=== PATIENT | female | born 1950 | race Caucasian/White ===

== ENCOUNTER 2019-08-02 11:14 | Observation (INO) | payer BC ==
--- NOTE | 2019-08-02 11:30 | ED ---
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 Patient denies chest pain and tachycardia prior to this morning's syncopal episode. Patient denies recent vomiting, diarrhea, fever, pain. The patient rates the pain 0/10 in severity. Symptoms aggravated by nothing. Symptoms alleviated by nothing. Patient states that at 02:00 today, she got out of bed, felt dizzy and had a headache, fell to floor, and went to the bathroom where she vomited, then went back to bed. Patient denies loss of consciousness and syncope with this fall. Patient also states that before work, she had another near syncopal episode. Patient states she has no cardiac hx. Last stress test was 10 years ago. Patient states she occasionally drinks alcohol, is a former smoker, and denies drug use. Medications reviewed. Allergies noted. 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 Aggravating Factor(s): Nothing Alleviating Factor(s): Nothing Associated Signs And Symptoms: Negative - chest pain, tachycardia, recent vomiting, diarrhea, fever, pain - Allergies/Home Medications Allergies/Adverse Reactions: Allergies Allergy/AdvReac Type Severity Reaction Status Date / Time No Known Allergies Allergy Verified 08/02/19 11:38 Home Medications: Home Medications NK [No Home Medications Reported] 08/02/19 [History Confirmed 08/02/19] PMH/Surg Hx/FS Hx/Imm Hx Endocrine/Hematology History: Denies: Hx Diabetes Cardiovascular History: Denies: Hx Hypertension - Surgical History Surgery Procedure, Year, and Place: colonoscopy - Family History Known Family History: Positive: Other - Father: colon polyps - Social History Alcohol Use: Occasionally Hx Substance Use: No Substance Use Type: Reports: None Hx Tobacco Use: Yes Smoking Status (MU): Former Smoker Review of Systems Negative: Fever Cardiovascular: Negative - tachycardia Negative: Chest Pain Negative: Vomiting, Diarrhea Positive: Syncope All Other Systems Reviewed And Are Negative: Yes Physical Exam - Summary Physical Exam Summary: Constitutional: Well-developed, Well-nourished, Alert. (-) Distressed Skin: Warm, Dry HENT: Normocephalic; Atraumatic Eyes: Conjunctiva normal Neck: Musculoskeletal ROM normal neck. (-) JVD, (-) Stridor, (-) Tracheal deviation Cardio: Rhythm regular, rate normal, Heart sounds normal; Intact distal pulses; The pedal pulses are 2+ and symmetric. Radial pulses are 2+ and symmetric. (-) Murmur Pulmonary/Chest wall: Effort normal. (-) Respiratory distress, (-) Wheezes, (-) Rales Abd: Soft, (-) tenderness, (-) Distension, (-) Guarding, (-) Rebound Musculoskeletal: (-) Edema Lymph: (-) Cervical adenopathy Neuro: Alert, Oriented x3 Psych: Mood and affect Normal GCS: 15 Triage Information Reviewed: Yes Vital Signs Reviewed: Yes Diagnostics - Laboratory Result Diagrams: 08/02/19 11:44 08/02/19 11:44 Lab Statement: Any lab studies that have been ordered have been reviewed, and results considered in the medical decision making process. - Radiology Chest x-ray Radiology Interpretation Completed By: Radiologist Summary of Radiographic Findings: NO ACTIVE CARDIOPULMONARY DISEASE. ED physician has reviewed this report. - CT Brain CT Interpretation Completed By: Radiologist Summary of CT Findings: 1. NO EVIDENCE FOR ACUTE INTRACRANIAL ABNORMALITY. 2. ATROPHY AND FINDINGS SUGGESTIVE OF MILD TO MODERATE CHRONIC SMALL VESSEL ISCHEMIC CHANGES. ED physician has reviewed this report. - EKG 1126 Cardiac Rate: NL - 78 BPM EKG Rhythm: Sinus Rhythm Summary of EKG Findings: Normal sinus rhythm, normal intervals - Additional Comments Diagnostic Additional Comments: Chest/Thorax CTA, per radiologist: NO PULMONARY ARTERIAL FILLING DEFECT TO SUGGEST PULMONARY EMBOLISM. ED physician has reviewed this report. Course/Dx Assessment/Plan: Patient is here with 3 episodes of syncope in the past 12 hours. Patient's first episode was orthostatic in nature but a second tube occurred while she was standing for prolonged period of time. Patient preceding or proceeding symptoms. Patient had a negative CT brain. Patient had negative blood work outside of a elevated d-dimer.. Patient had negative CTA for PE. Patient had negative orthostatic vital signs. She is admitted to medicine for further workup - Diagnoses Provider Diagnoses: Syncope - Physician Notifications Discussed Care of Patient With: Mirna Connolly Time Discussed With Above Provider: 13:49 Instructed by Provider To: Other - Dr. Connolly, hospitalist, agrees to admit patient Discharge ED - Sign-Out/Discharge Documenting (check all that apply): Patient Departure - Admit Patient Received Moderate/Deep Sedation with Procedure: No - Discharge Plan Condition: Stable Disposition: ADMITTED TO [facility] Referrals: Haylee Mahoney MD [Primary Care Provider] - - Billing Disposition and Condition Condition: STABLE Disposition: Admitted to [facility] - Attestation Statements Document Initiated by Soniaibe: Yes Documenting Scribe: Paloma Rivero Provider For Whom Matheus is Documenting (Include Credential): Adam Chiang MD Scribe Attestation: Paloma Donnelly, scribed for Adam Chiang MD on 08/02/19 at 1608. Scribe Documentation Reviewed: Yes Provider Attestation: The documentation as recorded by the scribe, Paloma Rivero accurately reflects the service I personally performed and the decisions made by me, Adam Chiang MD Status of Scribe Document: Viewed
[2019-08-02 11:55] LABS: ABS Lymphocytes 0.5 10^3/ul (1.0-4.8); ABS Monocytes 0.3 10^3/ul (0-0.8); ABS Neutrophils 4.3 10^3/ul (1.5-7.7); Hematocrit 37 % (35-47); Hemoglobin 12.9 g/dL (12.0-16.0); Lymphocyte % 9.3 %; Mean Corpuscular HGB Conc 35 g/dL (31-36); Mean Corpuscular Hemoglobin 32 pg (27-31); Mean Corpuscular Volume 93 fL (80-97); Mean Platelet Volume 8.4 fL (7.4-10.4); Nucleated Red Blood Cells % 0.1; Platelet Count 156 10^3/uL (150-450); Red Blood Count 4.02 10^6 /uL (3.70-4.87); Red Cell Distribution Width 13 % (10-15); White Blood Count 5.2 10^3/uL (3.5-10.8)
[2019-08-02 12:13] LABS: Albumin 4.2 g/dL (3.2-5.2); Albumin/Globulin Ratio 1.6 (1-3); BUN/Creatinine Ratio 11.8 (8-20); Calcium 8.8 mg/dL (8.6-10.3); EGFR African American 65.4 (>60); EGFR Non-African American 54.1 (>60); Globulin 2.6 g/dL (2-4); Potassium 3.6 mmol/L (3.5-5.0); Total Bilirubin 0.5 mg/dL (0.2-1.0); Total Protein 6.8 g/dL (6.4-8.9)
[2019-08-02 12:14] LABS: Troponin I 0.01 ng/mL (<0.04)
[2019-08-02] MEDS ORDERED: Iodixanol* (CONTRAST) 320 MG/ML 100 ML SDV IV ONE (12:57)
[2019-08-02] MEDS ORDERED: NS 0.9% 1000 ML** 1,000 ML IV SCH (16:00)
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
[2019-08-02] MEDS: Heparin VIAL(*) 5000 UNITS/ML VIAL (FIVE THOUSAND) SUBCUT SCH (22:31)
[2019-08-03] MEDS: Acetaminophen TAB* 325 MG PO PRN ×2 (00:41→11:01)
[2019-08-03] MEDS: Heparin VIAL(*) 5000 UNITS/ML VIAL (FIVE THOUSAND) SUBCUT SCH ×2 (05:36→13:45)
[2019-08-03 06:02] LABS: ABS Lymphocytes 0.8 10^3/ul (1.0-4.8); ABS Monocytes 0.3 10^3/ul (0-0.8); Eosinophil % 0.2 %; Hematocrit 38 % (35-47); Hemoglobin 12.8 g/dL (12.0-16.0); Lymphocyte % 23.9 %; Mean Corpuscular HGB Conc 34 g/dL (31-36); Mean Corpuscular Hemoglobin 32 pg (27-31); Mean Corpuscular Volume 93 fL (80-97); Mean Platelet Volume 8.5 fL (7.4-10.4); Platelet Count 138 10^3/uL (150-450); Red Blood Count 4.03 10^6 /uL (3.70-4.87); Red Cell Distribution Width 13 % (10-15); White Blood Count 3.1 10^3/uL (3.5-10.8)
[2019-08-03 06:21] LABS: BUN/Creatinine Ratio 11.8 (8-20); Calcium 8.7 mg/dL (8.6-10.3); EGFR African American 91.8 (>60); EGFR Non-African American 75.9 (>60); Potassium 3.6 mmol/L (3.5-5.0)
[2019-08-03 06:39] LABS: Urine Appearance Cloudy; Urine Bacteria Absent (Absent); Urine Bilirubin Negative (Negative); Urine Blood 1+ (Negative); Urine Color Yellow; Urine Glucose Negative (Negative); Urine Ketones 1+ (Negative); Urine Nitrite Negative (Negative); Urine Protein Negative (Negative); Urine Red Blood Cell Absent (Absent); Urine Specific Gravity 1.053 (1.010-1.030); Urine Squamous Epithelial Cell Present (Absent); Urine Urobilinogen Negative (Negative); Urine White Blood Cell 2+(11-20/hpf) (Absent)
--- NOTE | 2019-08-03 11:33 | ECHO ---
*[facility]* [place] [address] Fax #: [phone] Transthoracic Echocardiogram Patient: Lashae Avila : 1950 Study Date: 08/03/2019 Age: 68 Gender: F HR: 76 bpm Height: 63 in /160 cm BSA: 1.66 m^2 Weight: 139.7 lb /63.5 kg BMI: 24.8 kg/m^2 *Career Services Manager: * Gia Alonzo [facility] *Referring Physician: * Mirna Connolly *Reading Physician: Yash Ellington MD Indications: Syncope. History: Risk factors: Former tobacco use. Conclusions Summary: - Left ventricle: The cavity size is normal. Wall thickness is normal. Systolic function is at the lower limits of normal. The estimated ejection fraction is 50-55%. - Mitral valve: There is trace to mild regurgitation. - No previous echocardiogram available. Study data: Transthoracic echocardiogram. Procedure: Transthoracic echocardiography was performed. Image quality was fair. Complete 2D, spectral Doppler, and color flow Doppler. Location: Bedside. Patient status: Inpatient. Patient room number: 449-02. Rhythm: Normal sinus rhythm. Findings Left ventricle: The cavity size is normal. Wall thickness is normal. Systolic function is at the lower limits of normal. The estimated ejection fraction is 50-55%. Wall motion is normal; there are no regional wall motion abnormalities. Doppler parameters are consistent with abnormal left ventricular relaxation (grade 1 diastolic dysfunction). Right ventricle: The cavity size is normal. Wall thickness is mildly increased. Systolic function is normal. Left atrium: The atrium is mildly dilated. Right atrium: The atrium is normal in size. Mitral valve: The leaflets are mildly thickened. There is no evidence of stenosis. There is trace to mild regurgitation. Aortic valve: The leaflets are mildly thickened. There is no evidence of stenosis. There is no significant regurgitation. Tricuspid valve: The leaflets are normal thickness. There is no evidence of stenosis. There is physiologic regurgitation. Pulmonic valve: The leaflets are normal thickness. There is no evidence of stenosis. There is trace regurgitation. Aorta: Aortic root: The aortic root is appears normal. Ascending aorta: The ascending aorta is appears normal. Aortic arch: The aortic arch is appears normal. Pericardium: A prominent pericardial fat pad is present. The amount of pericardial fluid appears to be at the upper limits of normal. Pulmonary arteries: The main pulmonary artery is normal-sized. Systolic pressure can not be accurately estimated. Systemic veins: Inferior vena cava: The vessel is normal in size. There is (>= 50%) respiratory change in the IVC dimension. Pulmonary veins: Well visualized. The Pulmonary veins appear normal. Measurements Left ventricle Value Ref Aortic valve Value Ref SIMONA, LAX 5.0 cm 3.8 - 5.2 Vidhi diam, ED 1.7 cm ---- ESD, LAX 3.5 cm 2.2 - 3.5 Vidhi diam/bsa, ED 1.0 cm/m^2 ---- FS, LAX 31 % Peak v, S 1.38 m/sec ---- PW, ED, LAX 0.9 cm 0.6 - 0.9 VTI, S 31.0 cm ---- FS 31 % 45 Mean grad, S 5.0 mm Hg ---- PW, ED 0.9 cm 0.6 - 0.9 Peak grad, S 8.0 mm Hg ---- E', med vidhi, TDI 8.2 cm/sec >=7.0 CRISTINA, VTI 1.56 cm^2 - --- E/e', med vidhi, 8 CRISTINA, Vmax 1.40 cm^2 ---- TDI Mitral valve Value Ref LVOT Value Ref Peak E 0.65 m/sec ---- Diam, S 1.90 cm Peak A 0.92 m/sec ---- Area 2.8 cm^2 Decel time 63 ms ---- Peak esequiel, S 0.68 m/sec Peak E/A ratio 0.7 ---- Mean grad, S 1 mm Hg SV 47 ml Pulmonic valve Value Ref SV/bsa 28 ml/m^2 Peak v, S 0.66 m/sec ---- Peak grad, S 2.0 mm Hg ---- Ventricular septum Value Ref IVS, ED 0.7 cm 0.6 - 0.9 Aortic root Value Ref Root diam 2.6 cm <3.9 Right ventricle Value Ref AW thickness, ED (H) 1.0 cm 0.1 - 0.5 Ascending aorta Value Ref SIMONA, LAX 2.7 cm AAo AP diam, S 3.2 cm ---- SIMONA minor ax, A4C 3.4 cm 1.9 - 3.5 mid Aortic arch Value Ref Arch diam 1.9 cm ---- Left atrium Value Ref AP dim, ES 3.40 cm 2.70 - Decending aorta Value Ref 3.80 Uli peak esequiel 0.63 m/sec ---- ML dim, A4C 3.6 cm SI dim, A4C 5.6 cm Inferior vena cava Value Ref Vol/bsa, ES, 1-p 28 ml/m^2 11 - 40 Diam 1.3 cm ---- A4C Vol/bsa, ES, A/L 34 ml/m^2 16 - 34 Pulmonary veins Value Ref Peak v, S 0.64 m/sec ---- Right atrium Value Ref Peak v, D 0.51 m/sec ---- SI dim, ES 4.7 cm 3.4 - 5.3 Peak S/D ratio 1.2 ---- ML dim, ES, A4C 3.2 cm 2.6 - 4.4 A rev duration 127 ms ---- SI dim, ES, A4C 4.7 cm 3.4 - 5.3 Estimated RAP 3 mm Hg Legend: (L) and (H) tawanda values outside specified reference range. Prepared and electronically signed by Yahs Barcenas MD 08/03/2019 11:33
[2019-08-03 15:06] VITALS: BP 143/63
--- NOTE | 2019-08-03 20:17 | DS ---
CC: Dr. Mahoney * DISCHARGE SUMMARY: DATE OF ADMISSION: 08/02/19 DATE OF DISCHARGE: 08/03/19 PRIMARY CARE PROVIDER: Dr. Mahoney. DISCHARGE DISPOSITION: To home. CONDITION ON DISCHARGE: Stable. DISCHARGE DIAGNOSES: 1. Syncope, likely related to marked dehydration with no arrhythmias noted on telemetry monitored bed and unremarkable echocardiogram. 2. Memory impairment. MEDICATIONS AT DISCHARGE: None. RECOMMENDATIONS AT DISCHARGE: The patient is recommended to follow up with Dr. Mahoney in approximately 4 to 7 days. The patient appears to have at least moderate memory impairment and should be referred to a neurologist after seeing her primary care provider for further evaluation. LABORATORY DATA AND STUDIES PERFORMED DURING THE HOSPITAL STAY: Included on , sodium of 140, potassium 3.6, chloride 106, carbon dioxide 28, BUN 9, creatinine 0.76. The patient's troponins were 0 and 0.01 throughout the hospital stay. On 08/03/19, white blood cell count 3.1, hemoglobin 12.8, hematocrit 38, and platelets 138. Transthoracic echocardiogram obtained on 08/02/19 showed EF of 50% to 55% with trace mitral regurgitation. CT angiogram of the chest obtained on 08/02/19 showed "no pulmonary arterial filling defect to suggest pulmonary embolism." HOSPITALIZATION COURSE: Lashae Avila is a 68-year-old female who presented to the hospital complaining of recurrent syncope. Furthermore, on evaluation, she actually noted that the other syncope she "dreamt of." The patient appears to have a rather scattered thought process. She got confused in the evening, thought [place] and requested to be discharged, and needed to have safety monitor overnight. In the morning, she was back to her baseline, which was functional and independent for activities of daily living, but with definite memory impairment. I requested our Speech Therapy to perform cognitive evaluation. The patient's BIMS score was 7/14, indicating at least moderate memory impairment. The patient was able to do serial numbers without any problems, but had problems remembering the month. She was able to remember the correct year. The patient's CT of the brain showed atrophy with findings suggestive of mild-to - moderate chronic small-vessel ischemic changes. The patient's clinical evaluation in conjunction with the CT of the brain report shows that the patient likely is developing dementia. Our Social Work was involved in the patient's care and recommended for the patient to be discharged back to the community. Also, the patient's son, Gilberto, was contacted who is coming to leaf size picker the patient and bring her home. At this point, the patient appears to be functional, but further neurologic evaluation will be warranted in the near future. In regards to the patient's syncope, she was mildly orthostatic at admission. She received intravenous fluids and she had no further episodes of syncope and no arrhythmias noted on the telemetry monitored bed. Physical exam at discharge is unchanged from admission. [id number] #: [id number] MARK
== END 2019-08-03 17:20 | disposition home or self-care (01) ==
LOC: ED 11:14 → MEDTELE 15:47
PROVIDERS: ADMIT Internal Medicine; ATTEND Internal Medicine
DX: R55 Syncope and collapse (principal); R41.3 Other amnesia; Z87.891 Personal history of nicotine dependence
CPT/HCPCS: 36415; 70450; 71045; 71275; 80048; 80053; 81003; 81015; 83880; 84484; 85025; 85379; 87086; 93005; 93306; 96361; 96372; 99284; A9270-GY; G0378; G9165-GN-CJ; G9166-GN-CJ; G9167-GN-CJ; J1644; Q9967

== ENCOUNTER 2021-01-08 21:23 | Inpatient (IN) ==
[2021-01-09 00:15] LABS: ABS Lymphocytes 0.6 10^3/ul (1.0-4.8); ABS Monocytes 0.3 10^3/ul (0-0.8); ABS Neutrophils 2.4 10^3/ul (1.5-7.7); Eosinophil % 0.1 %; Hematocrit 40 % (35-47); Hemoglobin 13.3 g/dL (12.0-16.0); Lymphocyte % 18.4 %; Mean Corpuscular HGB Conc 34 g/dL (31-36); Mean Corpuscular Hemoglobin 33 pg (27-31); Mean Corpuscular Volume 99 fL (80-97); Mean Platelet Volume 9.8 fL (7.4-10.4); Platelet Count 128 10^3/uL (150-450); Red Blood Count 3.98 10^6 /uL (3.70-4.87); Red Cell Distribution Width 14 % (10-15); White Blood Count 3.3 10^3/uL (3.5-10.8)
[2021-01-09 00:19] LABS: ALT 11 U/L (7-52); AST 16 U/L (13-39); Albumin 4.1 g/dL (3.2-5.2); Albumin/Globulin Ratio 1.5 (1-3); Alkaline Phosphatase 49 U/L (34-104); Anion Gap 8 mmol/L (2-11); BUN/Creatinine Ratio 20.9 (8-20); Blood Urea Nitrogen 14 mg/dL (6-24); CO2 Carbon Dioxide 33 mmol/L (22-32); Calcium 9.4 mg/dL (8.6-10.3); Chloride 104 mmol/L (101-111); Creatine Kinase 55 U/L (10-223); EGFR African American 105.6 (>60); EGFR Non-African American 87.3 (>60); Globulin 2.7 g/dL (2-4); Glucose 100 mg/dL (70-100); Magnesium 2.4 mg/dL (1.9-2.7); Potassium 3.5 mmol/L (3.5-5.0); Sodium 145 mmol/L (135-145); Total Protein 6.8 g/dL (6.4-8.9)
[2021-01-09 00:21] LABS: Troponin I 0.01 ng/mL (<0.03)
[2021-01-09 00:24] LABS: Acetaminophen < 15 mcg/mL; Alcohol, S < 10 mg/dL (<10); Salicylate < 2.50 mg/dL (<30)
[2021-01-09 00:39] LABS: TSH Ultra Thyroid Stim Horm 2.07 mcIU/mL (0.34-5.60)
[2021-01-09 02:11] LABS: INR 0.91 (0.82-1.09)
[2021-01-09 02:15] LABS: Urine Appearance Cloudy; Urine Bilirubin Negative (Negative); Urine Blood Negative (Negative); Urine Color Yellow; Urine Glucose 1+(50 mg/dL) (Negative); Urine Ketones Negative (Negative); Urine Nitrite Negative (Negative); Urine Protein 1+(30 mg/dL) (Negative); Urine Specific Gravity 1.024 (1.010-1.030); Urine Urobilinogen Negative (Negative)
[2021-01-09 02:18] LABS: Ammonia 20 mcmol/L (16-53)
[2021-01-09 02:24] LABS: Urine Bacteria Absent (Absent); Urine Red Blood Cell Absent (Absent); Urine Squamous Epithelial Cell Present (Absent); Urine White Blood Cell Trace(0-5/hpf) (Absent)
[2021-01-09 02:34] LABS: Urine Benzodiazepine Screen None Detected (None Detect); Urine Cannabinoids Screen None Detected (None Detect); Urine Opiates Screen None Detected (None Detect)
[2021-01-09] MEDS ORDERED: Ondansetron 4 mg VIAL 2 MG/ML 2 ml VIAL IV PRN (03:12)
[2021-01-09] MEDS ORDERED: Enoxaparin 40 MG/0.4 ML SYR SUBCUT SCH (04:00)
[2021-01-09] MEDS: NS 0.9% 1000 ml BAG 1,000 ML IV SCH ×2 (04:10→11:06)
[2021-01-09 04:35] LABS: BNP 81 pg/mL (<=100)
[2021-01-09 06:10] LABS: Vitamin B12 167 pg/mL (180-914)
[2021-01-09] MEDS ORDERED: Cyanocobalamin INJ 1,000 MCG/ML VIAL 1 ML VIAL IM ONE (06:17)
[2021-01-09] MEDS: Enoxaparin 40 MG/0.4 ML SYR SUBCUT SCH (10:00)
[2021-01-10] MEDS: cefTRIAXone 1 gm/50 mL NS BAG 1 GM/50 ML BAG IVPB SCH (04:29)
[2021-01-10 06:35] LABS: ABS Lymphocytes 0.9 10^3/ul (1.0-4.8); ABS Monocytes 0.3 10^3/ul (0-0.8); ABS Neutrophils 2.8 10^3/ul (1.5-7.7); Eosinophil % 0.2 %; Hematocrit 34 % (35-47); Hemoglobin 11.7 g/dL (12.0-16.0); Lymphocyte % 22.3 %; Mean Corpuscular HGB Conc 35 g/dL (31-36); Mean Corpuscular Hemoglobin 33 pg (27-31); Mean Corpuscular Volume 96 fL (80-97); Mean Platelet Volume 8.6 fL (7.4-10.4); Platelet Count 124 10^3/uL (150-450); Red Blood Count 3.53 10^6 /uL (3.70-4.87); Red Cell Distribution Width 14 % (10-15)
[2021-01-10 06:51] LABS: BUN/Creatinine Ratio 18.5 (8-20); Calcium 8.7 mg/dL (8.6-10.3); EGFR African American 135.4 (>60); EGFR Non-African American 111.9 (>60); Magnesium 1.8 mg/dL (1.9-2.7); Potassium 3.7 mmol/L (3.5-5.0)
[2021-01-10 07:34] LABS: Folate 13.55 ng/mL (>3.99)
[2021-01-10] MEDS: Enoxaparin 40 MG/0.4 ML SYR SUBCUT SCH (08:52)
[2021-01-10] MEDS ORDERED: Haloperidol 5 mg/ml SDV IV/IM 5 MG/ML AMP IM PRN (13:09)
[2021-01-10] MEDS ORDERED: Lorazepam PYXIS KEY PRN (13:10)
[2021-01-10] MEDS ORDERED: Magnesium Sulfate 2 gm BAG 2 GM/50 ML BAG IVPB ONE (14:06)
[2021-01-10] MEDS: LORazepam 2 mg VIAL 1 ml IM PRN (14:49)
[2021-01-10 16:22] LABS: Folate 12.06 ng/mL (>3.99)
[2021-01-11] MEDS: cefTRIAXone 1 gm/50 mL NS BAG 1 GM/50 ML BAG IVPB SCH (04:14)
[2021-01-11 05:26] LABS: BUN/Creatinine Ratio 22.9 (8-20); Calcium 8.7 mg/dL (8.6-10.3); EGFR African American 155.2 (>60); EGFR Non-African American 128.2 (>60); Potassium 3.5 mmol/L (3.5-5.0)
[2021-01-11] MEDS: Enoxaparin 40 MG/0.4 ML SYR SUBCUT SCH (09:24)
[2021-01-11] MEDS: LORazepam 2 mg VIAL 1 ml IM PRN (14:30)
[2021-01-11] MEDS ORDERED: LORazepam 2 mg VIAL 1 ml IV PUSH PRN (14:34)
[2021-01-12] MEDS: cefTRIAXone 1 gm/50 mL NS BAG 1 GM/50 ML BAG IVPB SCH (03:47)
[2021-01-12] MEDS: Enoxaparin 40 MG/0.4 ML SYR SUBCUT SCH (08:54)
[2021-01-13] MEDS: Enoxaparin 30 MG/0.3 ML SYR SUBCUT SCH (09:38)
[2021-01-13] MEDS ORDERED: Polyethylene Glycol 3350 17 GM PACKET PO PRN (14:46)
[2021-01-13] MEDS ORDERED: Senna TAB 8.6 mg TAB PO SCH (21:00)
[2021-01-14] MEDS ORDERED: Glycerin ADULT 2.4 gm SUPP PR PRN (09:09)
[2021-01-14] MEDS: Enoxaparin 30 MG/0.3 ML SYR SUBCUT SCH (09:09)
[2021-01-14] MEDS ORDERED: Sodium Phosphate ADULT ENEMA 133 ML BTL PR ONE (11:09)
[2021-01-14 16:20] VITALS: BP 132/59
== END 2021-01-14 17:50 | DRG 641 ==
LOC: ED 21:23 → MEDTELE 21:23
PROVIDERS: ADMIT Internal Medicine; ATTEND Pediatrics